=== PATIENT | female | born 1955 | race Caucasian/White ===

== ENCOUNTER → 2020-03-18 08:26 | Outpatient (BNVA) | payer OTHER, SELFPAY | PROVIDERS: PCP Internal Medicine; Visit Provider Hospitalist | DX: Z76.89 Persons encountering health services in other specified circumstances (principal) ==

== ENCOUNTER 2021-01-08 09:40 | Outpatient (REF) | payer OTHER, SELFPAY ==
--- NOTE | 2021-01-08 17:01 | PFT_ITS ---
FLOWS: FEV1 92% of predicted at 2.08 L. FVC 80% of predicted at 2.35 L. FEV1 to FVC ratio of 0.88. No bronchodilator response except in small to medium airways. LUNG VOLUMES: Total lung capacity 95% of predicted at 4.39 L. Residual volume 95% predicted at 1.89 L. Slow vital capacity 90% of predicted at 0.50 L. Expiratory reserve volume 114% predicted at 0.81 L. Diffusion capacity is normal. IMPRESSION: No obstructive or restrictive ventilatory defect. No bronchodilator response except in small to medium airways. Essentially normal pulmonary function test. MD BJ Sneed/MODL / [id number]
== END 2021-01-08 09:41 | disposition home or self-care (01) ==
LOC: HO.RESP 09:40
PROVIDERS: PCP Internal Medicine; Visit Provider Hospitalist
DX: J45.909 Unspecified asthma, uncomplicated (principal)
CPT/HCPCS: 94060; 94727; 94729

== ENCOUNTER → 2021-01-21 10:13 | Outpatient (BNVA) | payer OTHER, SELFPAY | PROVIDERS: PCP Internal Medicine; Visit Provider Hospitalist ==

== ENCOUNTER 2021-07-22 11:04 | Outpatient (REF) | payer MEDICARE, BC, SELFPAY ==
--- NOTE | ~2021-07-22 | XR_ITS ---
EXAMINATION: XR CHEST CLINICAL INFORMATION: Chest pain COMPARISON: Previous chest x-ray January 2019 TECHNIQUE: 2 views of the chest were obtained. FINDINGS: The cardiac and mediastinal contours are stable. The lungs are well inflated. The lungs are clear. There is no pleural effusion or pneumothorax. There are degenerative changes of the spine. XR/XR chest 2V IMPRESSION: Well-inflated lungs. No evidence for acute disease in the chest.
--- NOTE | ~2021-07-22 | XR_ITS ---
EXAMINATION: XR SINUSES CLINICAL INFORMATION: Chronic sinusitis COMPARISON: None TECHNIQUE: 3 views of the sinuses were obtained. FINDINGS: Paranasal sinuses appear clear without air-fluid levels. No fractures are identified. No radiodense foreign bodies. XR/XR sinus min 3V IMPRESSION: Unremarkable sinus examination.
== END 2021-07-22 11:05 | disposition home or self-care (01) ==
LOC: HO.XRAY 11:04
PROVIDERS: PCP Internal Medicine; Visit Provider Hospitalist
DX: R07.9 Chest pain, unspecified (principal); J32.9 Chronic sinusitis, unspecified; J45.40 Moderate persistent asthma, uncomplicated; G47.33 Obstructive sleep apnea (adult) (pediatric); Z99.89 Dependence on other enabling machines and devices
CPT/HCPCS: 70220; 71046; 99212

== ENCOUNTER 2022-03-15 17:03 | Outpatient (REF) | payer MEDICARE, BC, SELFPAY ==
[2022-03-15 18:02] LABS: Influenza A PCR NEGATIVE (Negative); Influenza B PCR NEGATIVE (Negative); Resp Syncy Virus RNA Qual PCR NEGATIVE (Negative); SARS COV2 PCR INHOUSE NEGATIVE (Negative)
== END 2022-03-15 17:04 | disposition home or self-care (01) ==
LOC: HO.LNP 17:03
PROVIDERS: Visit Provider Hospitalist
DX: J45.40 Moderate persistent asthma, uncomplicated (principal); J06.9 Acute upper respiratory infection, unspecified; J01.00 Acute maxillary sinusitis, unspecified; J30.9 Allergic rhinitis, unspecified; R50.9 Fever, unspecified; G47.33 Obstructive sleep apnea (adult) (pediatric); Z99.89 Dependence on other enabling machines and devices; Z20.822 Contact with and (suspected) exposure to COVID-19
CPT/HCPCS: 0241U; 99212

== ENCOUNTER 2023-04-28 14:47 | Outpatient (AMB) | payer MEDICARE, BC, SELFPAY ==
--- NOTE | 2023-04-28 14:55 | A.OFFVIS_ITS ---
Intake Vital Signs 04/28/23 14:56 Height 5 ft 3 in Weight 150 lb BMI 26.6 BP 128/60 Blood Pressure Location Lt brachial Position Sitting Pulse 69 Pulse Source Pulse Oximeter Pulse Oximetry (%) 99 Oxygen Delivery Method Room Air Intake Visit Reasons: asthma Carbon Paper Interleafer Required: No Allergies Sulfa Drugs Allergy (Severe, Uncoded 04/28/23 14:58) Hives HPI HPI Comments History of Present Illness Details The patient is a 67-year-old woman with asthma and obstructive sleep apnea. More recently she felt dizzy and subsequently had a syncopal episode. She was admitted to [facility] back in November 06 where she had an EKG which was relatively normal. It is felt that she was dehydrated and a vasovagal event as she was constipated. However, she also had an echocardiogram and Holter monitor. The echocardiogram demonstrated that she had an estimated pulmonary arterial pressure of 38 mmHg suggesting that she potentially has moderate pulmonary hypertension. Her RV is normal size and function which is reassuring in her are in the LV is also within normal. No valvular disease. She does have issues of daytime drowsiness. Her [place] Score is elevated 04/03. She needs to get a sleep study at this time because of the concern of the cardiovascular risks the pulmonary vascular risks and also her continued daytime symptoms. I will request a sleep study [facility]. In regards to her asthma is appears to be better now that she is taking her full dose or 2 ago. She has not had to use a rescue inhaler. Denies any use of prednisone a recent flares. Using antihistamines for allergies appears to be effective. She did undergo a home sleep study which demonstrated mild sleep apnea. She also had hypoxia down to 84% which is concerning with her pulmonary hypertension. The patient also cannot lay on her sides because of significant issues sleeping on her sides. Unfortunately, her sleep apnea was worse on her back which she sleeps more comfortably. At this point the patient needs to start CPAP therapy to treat her cardiovascular risks including her pulmonary hypertension and her degree of obstructive sleep apnea. 04/26/2019 the patient is here for sick visit. Apparently back in April 11 she was exposed to sick contact. She started having runny nose and congestion. Also had increased cough productive sputum. She had azithromycin in the house so she took a 3 day course of it. Initially she felt a little better than started getting worse. Started getting some chest congestion productive cough of green sputum. Also complains of some chest heaviness. She has been having more issues with her cough also has subjective fevers. Therefore she called in to be evaluated. The office she does have some crepitations at the bases right more than left. He also has expiratory wheezing. She needs to get a breathing treatment right now. She may benefit from a nebulizer for home specially for mucus clearance. 03/17/2020 Personal her for pulmonary follow-up visit. The pressure overall has been doing well. She continues to use her AirDuo. She has not had to use her rescue inhaler. She does have underlying allergies and nasal congestion. She does through the nasal rinsing her nose was sprayed. Does have some shortness of breath with activity mild in severity. Usually gets better with rest. Also has a cough. Usually nonproductive her normal trip. But overall doing well. She was seen by her maintenance team leader who is very happy with her underlying cardiac status. No need for an echo for the next 3 years. In the meantime the patient has been using her CPAP. CPAP therapy continues to be affecting beneficial. She does use it for more than 4 hours a night. She is getting supplies through her [employer] company, [employer]. We did look at her last chest x-ray from 2019 demonstrating interval resolution of a small infiltrate and atelectasis. Will plan to do PFTs and repeat x-ray next year. 01/21/2021 the patient is here for a pulmonary follow-up visit. She continues to have episodes of shortness of breath chest tightness. There is certain triggers that she has specially and she is vacuuming or different changes season such as a fall in the spring. She also gets nasal congestion along with the chest tightness. Flonase and nasal rinsing is not helping completely. I will send her prescription for ipratropium nasal spray. She does state that in the past she was diagnosed with glaucoma but the last time that she had a test was not mention. Explained to her that she could try the petroleum which she needs to have your eyes closely monitor. If she develops any visual changes he is to stop the ipratropium nasal spray. The patient has been using the CPAP. The CPAP therapy continues to be affecting beneficial. She does use it for more than 4 hours a night. She does have a history of pulmonary hypertension and understands the importance of using her CPAP therapy. During the office visit we did review her recent pulmonary function studies demonstrating normal lung capacity. no evidence of any obstructive nor restrictive ventilatory defects. 07/22/2021 the patient is here for a pulmonary follow-up visit. Since we last spoke the patient has been feeling fatigued and not herself. She has had a few bouts of sinusitis. The last about was stronger. She did require antibiotics and prednisone in addition to [id number] therapy. She is feeling better. However, because of the sinus congestion sometime she cannot use her CPAP. She did bring her CPAP in and was able to downloaded. Her AHI was actually 0.1. Her average pressure is around 8. She is doing very well with it using approximately more than 6-7 hours a night. She does have a comfortable mask. The machine seems to be working very well even though is more than 5 years old. She will continue using for now. Patient also complains of some mild chest discomfort. It is in the reproducible. However, she has not had a chest x-ray sometime in with constitutional symptoms of be reasonable to get further studies. 03/15/2022 the patient is here for a pulmonary follow-up visit. She has been having issues with significant sinus pressure and pain. She is also complaining of a cough. This happened to start yesterday. Positive sick contacts. She did have a libertarian that she hopes that over the weekend. Denies any wheezing or chest tightness right now. She did have a slight temperature a 100.5 degrees. Therefore I did swab her in the office. She did test negative for RSV, flu and for COVID-19. No significant wheezing on examination at this time. No recent x-rays or imaging studies to review. Overall the patient has been doing well on the current respiratory regimen. 04/28/2023 the patient is here for pulmonary follow-up visit. Overall the patient has been doing well. Back in March she did call her primary care doctor for sinus symptoms. She was diagnosed sinusitis and given antibiotics. After that she is back to her baseline. She was given doxycycline. The patient has been using her inhalers with good effect. She has not required her rescue inhaler. In addition to that she continues use her CPAP. The CPAP therapy c ontinues to be affecting beneficial. She does use a nasal mask. Sometimes if her nasal passages to plugged up she has a hard time with the machine therefore she can not use it. But she does try to use it at least 70% of the time or more. Otherwise patient is without any other complaints we did look at her last chest x-ray does back from 2021 that just demonstrated hyperinflated lungs. As far as vaccine she does not typically get vaccines but I did explain to her the importance of getting the Prevnar 20 vaccine as she is taking care of her grandchildren. [facility] Medical History (Updated 03/15/22 @ 21:23 by Donavan Nation MD) Chest pain PARISH on CPAP Chronic allergic rhinitis Asthma Social History (Updated 01/21/21 @ 10:35 by Agnieszka Watkins Kurt) Patient Tobacco Use Status: Never used Tobacco Review of Systems Const Denies chills and Denies night sweats ENT Denies change in voice, Denies lip swelling, Denies mouth pain, Reports nasal congestion, Reports post nasal drip, Denies sinus pain, Denies sinus pressure and Denies tongue swelling Card Denies dyspnea Resp Reports cough and Denies dyspnea GI Denies abdominal pain Musc Denies no additional complaints Neuro Denies Neuro-related abnormal movements Psych Denies no additional complaints Jairon/Lymph Denies easy bleeding and Denies lymphadenopathy Aller/Immun Denies lip swelling and Denies tongue swelling Physical Exam Vital Signs: Last Vital Signs Pulse 69 04/28/23 14:56 BP 128/60 04/28/23 14:56 Pulse Ox 99 04/28/23 14:56 Oxygen Delivery Method Room Air 04/28/23 14:56 BMI result Body Mass Index 26.6 Const General: alert Neck Neck: Yes normal visual inspection, Yes full ROM and Yes no lymphadenopathy Chest Chest palpation & inspection: normal inspection of the chest and tenderness costochondral junction Resp Effort & Inspection: normal respiratory effort Auscultation: diminished lung sounds Cardio Rate: regular rate Rhythm: regular rhythm Heart sounds: S1 normal heart sound present and S2 normal heart sound present GI Palpation (GI): Soft to palpation and nontender Auscultation: normal bowel sounds Skin General skin exam: rashes and/or lesions noted Assessment & Plan Assessment & Plan (1) Asthma: Code(s): J45.909 - Unspecified asthma, uncomplicated Qualifiers: Asthma complication type: uncomplicated Asthma persistence: persistent Asthma severity: moderate Qualified Code(s): J45.40 - Moderate persistent asthma, uncomplicated Plan: Continue AirDuo twice a day Short-acting beta agonist as needed, nebulizer as needed (2) Chronic allergic rhinitis: Code(s): J30.9 - Allergic rhinitis, unspecified Plan: Nasal rinsing Nasal steroid Mucinex as needed Facy-xlb-coklrah allergy medicine as needed (3) PARISH on CPAP: Code(s): G47.33 - Obstructive sleep apnea (adult) (pediatric); Z99.89 - Dependence on other enabling machines and devices Plan: Continue CPAP therapy every night Plan Nasal rinsing continue APAP therapy, [employer] continue AirDuo short-acting beta agonist as needed Follow-up 8-12 months Coding Level of Care Code Est Pt Level 4 (28871) Diagnoses Moderate persistent asthma without complication J45.40 Asthma complication type: uncomplicated Asthma persistence: persistent Asthma severity: moderate Chronic allergic rhinitis J30.9 PARISH on CPAP G47.33; Z99.89 Time Spent (min) 16
[2023-04-28 14:56] VITALS: BP 128/60; PULSE 69; O2SAT 99; BMI 26.6
== END 2023-04-28 15:14 | disposition home or self-care (01) ==
PROVIDERS: PCP Internal Medicine; Visit Provider Hospitalist
DX: J45.40 Moderate persistent asthma, uncomplicated (principal); J30.9 Allergic rhinitis, unspecified; G47.33 Obstructive sleep apnea (adult) (pediatric); Z99.89 Dependence on other enabling machines and devices
CPT/HCPCS: 99214

== ENCOUNTER → 2023-04-28 14:47 | Outpatient (BNVA) | payer MEDICARE, BC, SELFPAY | PROVIDERS: PCP Internal Medicine; Visit Provider Hospitalist | DX: J45.40 Moderate persistent asthma, uncomplicated (principal); G47.33 Obstructive sleep apnea (adult) (pediatric); J30.9 Allergic rhinitis, unspecified; Z99.89 Dependence on other enabling machines and devices | CPT/HCPCS: 99212 ==

== ENCOUNTER 2024-03-23 15:02 | Outpatient (AMB) | payer MEDICARE, BC, SELFPAY ==
[2024-03-23 15:21] VITALS: BP 140/84; PULSE 69; O2SAT 99; BMI 27.5
--- NOTE | 2024-03-23 15:21 | A.OFFVIS_ITS ---
Vital Signs 03/23/24 15:21 Height 5 ft 3 in Weight 155 lb 6.814 oz BMI 27.5 BP 140/84 H Blood Pressure Location Lt brachial Position Sitting Pulse 69 Pulse Source Pulse Oximeter Pulse Oximetry (%) 99 Oxygen Delivery Method Room Air Intake Visit Reasons: Yearly check Ocular Care Technologist Required: No Allergies Sulfa Drugs Allergy (Severe, Uncoded 03/23/24 15:25) Hives HPI Comments Details: The patient is a 68-year-old woman with asthma and obstructive sleep apnea. More recently she felt dizzy and subsequently had a syncopal episode. She was admitted to [facility] back in November 06 where she had an EKG which was relatively normal. It is felt that she was dehydrated and a vasovagal event as she was constipated. However, she also had an echocardiogram and Holter monitor. The echocardiogram demonstrated that she had an estimated pulmonary arterial pressure of 38 mmHg suggesting that she potentially has moderate pulmonary hypertension. Her RV is normal size and function which is reassuring in her are in the LV is also within normal. No valvular disease. She does have issues of daytime drowsiness. Her [place] Score is elevated 04/03. She needs to get a sleep study at this time because of the concern of the cardiovascular risks the pulmonary vascular risks and also her continued daytime symptoms. I will request a sleep study KYLEE. In regards to her asthma is appears to be better now that she is taking her full dose or 2 ago. She has not had to use a rescue inhaler. Denies any use of prednisone a recent flares. Using antihistamines for allergies appears to be effective. She did undergo a home sleep study which demonstrated mild sleep apnea. She also had hypoxia down to 84% which is concerning with her pulmonary hypertension. The patient also cannot lay on her sides because of significant issues sleeping on her sides. Unfortunately, her sleep apnea was worse on her back which she sleeps more comfortably. At this point the patient needs to start CPAP therapy to treat her cardiovascular risks including her pulmonary hypertension and her degree of obstructive sleep apnea. 04/26/2019 the patient is here for sick visit. Apparently back in April 11 she was exposed to sick contact. She started having runny nose and congestion. Also had increased cough productive sputum. She had azithromycin in the house so she took a 3 day course of it. Initially she felt a little better than started getting worse. Started getting some chest congestion productive cough of green sputum. Also complains of some chest heaviness. She has been having more issues with her cough also has subjective fevers. Therefore she called in to be evaluated. The office she does have some crepitations at the bases right more than left. He also has expiratory wheezing. She needs to get a breathing treatment right now. She may benefit from a nebulizer for home specially for mucus clearance. 03/17/2020 Personal her for pulmonary follow-up visit. The pressure overall has been doing well. She continues to use her AirDuo. She has not had to use her rescue inhaler. She does have underlying allergies and nasal congestion. She does through the nasal rinsing her nose was sprayed. Does have some shortness of breath with activity mild in severity. Usually gets better with rest. Also has a cough. Usually nonproductive her normal trip. But overall doing well. She was seen by her occupational physician who is very happy with her underlying cardiac status. No need for an echo for the next 3 years. In the meantime the patient has been using her CPAP. CPAP therapy continues to be affecting beneficial. She does use it for more than 4 hours a night. She is getting supplies through her [employer] company, [employer]. We did look at her last chest x-ray from 2019 demonstrating interval resolution of a small infiltrate and atelectasis. Will plan to do PFTs and repeat x-ray next year. 01/21/2021 the patient is here for a pulmonary follow-up visit. She continues to have episodes of shortness of breath chest tightness. There is certain triggers that she has specially and she is vacuuming or different changes season such as a fall in the spring. She also gets nasal congestion along with the chest tightness. Flonase and nasal rinsing is not helping completely. I will send her prescription for ipratropium nasal spray. She does state that in the past she was diagnosed with glaucoma but the last time that she had a test was not mention. Explained to her that she could try the petroleum which she needs to have your eyes closely monitor. If she develops any visual changes he is to stop the ipratropium nasal spray. The patient has been using the CPAP. The CPAP therapy continues to be affecting beneficial. She does use it for more than 4 hours a night. She does have a history of pulmonary hypertension and understands the importance of using her CPAP therapy. During the office visit we did review her recent pulmonary function studies demonstrating normal lung capacity. no evidence of any obstructive nor restrictive ventilatory defects. 07/22/2021 the patient is here for a pulmonary follow-up visit. Since we last spoke the patient has been feeling fatigued and not herself. She has had a few bouts of sinusitis. The last about was stronger. She did require antibiotics and prednisone in addition to [id number] therapy. She is feeling better. However, because of the sinus congestion sometime she cannot use her CPAP. She did bring her CPAP in and was able to downloaded. Her AHI was actually 0.1. Her average pressure is around 8. She is doing very well with it using approximately more than 6-7 hours a night. She does have a comfortable mask. The machine seems to be working very well even though is more than 5 years old. She will continue using for now. Patient also complains of some mild chest discomfort. It is in the reproducible. However, she has not had a chest x-ray sometime in with constitutional symptoms of be reasonable to get further studies. 03/15/2022 the patient is here for a pulmonary follow-up visit. She has been having issues with significant sinus pressure and pain. She is also complaining of a cough. This happened to start yesterday. Positive sick contacts. She did have a constitution party that she hopes that over the weekend. Denies any wheezing or chest tightness right now. She did have a slight temperature a 100.5 degrees. Therefore I did swab her in the office. She did test negative for RSV, flu and for COVID-19. No significant wheezing on examination at this time. No recent x-rays or imaging studies to review. Overall the patient has been doing well on the current respiratory regimen. 04/28/2023 the patient is here for pulmonary follow-up visit. Overall the patient has been doing well. Back in March she did call her primary care doctor for sinus symptoms. She was diagnosed sinusitis and given antibiotics. After that she is back to her baseline. She was given doxycycline. The patient has been using her inhalers with good effect. She has not required her rescue inhaler. In addition to that she continues use her CPAP. The CPAP therapy continues to be affecting beneficial. She does use a nasal mask. Sometimes if her nasal passages to plugged up she has a hard time with the machine therefore she can not use it. But she does try to use it at least 70% of the time or more. Otherwise patient is without any other complaints we did look at her last chest x-ray does back from 2021 that just demonstrated hyperinflated lungs. As far as vaccine she does not typically get vaccines but I did explain to her the importance of getting the Prevnar 20 vaccine as she is taking care of her grandchildren. 03/23/2024 the patient is here for a pulmonary follow-up visit. Overall the patient has been doing well. Been about a year since we last spoke. The patient has been using her inhalers with good effect. She has not required any prednisone. She has not required her rescue inhaler. Sometimes she does have allergies and nasal congestion. Sometimes this makes it hard to use her CPAP with a nasal mask. She wonders if a fullface mask will be more comfortable for her. She also gets a dry mouth at times. I did recommend she can try a chin strap 1st and if that does not work she can always call me and I can request Kaela to send her fullface mask. No recent imaging studies to review. ON LICENSE OF [facility] Medical History (Updated 03/15/22 @ 21:23 by Donavan Nation MD) Chest pain PARISH on CPAP Chronic allergic rhinitis Asthma Social History Patient Tobacco Use Status: Never used Tobacco Review of Systems Const Denies chills and Denies night sweats ENT Denies change in voice, Denies lip swelling, Denies mouth pain, Reports nasal congestion, Reports post nasal drip, Denies sinus pain, Denies sinus pressure and Denies tongue swelling Card Denies dyspnea Resp Reports cough and Denies dyspnea GI Denies abdominal pain Musc Denies no additional complaints Neuro Denies Neuro-related abnormal movements Psych Denies no additional complaints Jairon/Lymph Denies easy bleeding and Denies lymphadenopathy Aller/Immun Denies lip swelling and Denies tongue swelling Physical Exam Vital Signs: Last Vital Signs Pulse 69 03/23/24 15:21 BP 140/84 H 03/23/24 15:21 Pulse Ox 99 03/23/24 15:21 Oxygen Delivery Method Room Air 03/23/24 15:21 BMI result Body Mass Index 27.5 Const General: alert Neck Neck: Yes normal visual inspection, Yes full ROM and Yes no lymphadenopathy Chest Chest palpation & inspection: normal inspection of the chest and tenderness costochondral junction Resp Effort & Inspection: normal respiratory effort Auscultation: diminished lung sounds Cardio Rate: regular rate Rhythm: regular rhythm Heart sounds: S1 normal heart sound present and S2 normal heart sound present GI Palpation (GI): Soft to palpation and nontender Auscultation: normal bowel sounds Skin General skin exam: rashes and/or lesions noted Assessment & Plan Assessment & Plan (1) Asthma: Code(s): J45.909 - Unspecified asthma, uncomplicated Category: Medical Qualifiers: Asthma complication type: uncomplicated Asthma persistence: persistent Asthma severity: moderate Qualified Code(s): J45.40 - Moderate persistent asthma, uncomplicated Plan: Continue AirDuo twice a day Short-acting beta agonist as needed, nebulizer as needed (2) Chronic allergic rhinitis: Code(s): J30.9 - Allergic rhinitis, unspecified Category: Medical Plan: Nasal rinsing Nasal steroid Mucinex as needed Cfxl-goq-hvluwrz allergy medicine as needed (3) PARISH on CPAP: Code(s): G47.33 - Obstructive sleep apnea (adult) (pediatric); Z99.89 - Dependence on other enabling machines and devices Category: Medical Plan: Continue CPAP therapy every night Plan Nasal rinsing continue APAP therapy, [employer] continue AirDuo short-acting beta agonist as needed Follow-up 8-12 months Coding Level of Care Code Est Pt Level 4 (15242) Diagnoses Moderate persistent asthma without complication J45.40 Asthma complication type: uncomplicated Asthma persistence: persistent Asthma severity: moderate Chronic allergic rhinitis J30.9 PARISH on CPAP G47.33; Z99.89 Time Spent (min) 17
== END 2024-03-23 15:48 | disposition home or self-care (01) ==
PROVIDERS: PCP Internal Medicine; Visit Provider Hospitalist
DX: J45.40 Moderate persistent asthma, uncomplicated (principal); J30.9 Allergic rhinitis, unspecified; G47.33 Obstructive sleep apnea (adult) (pediatric); Z99.89 Dependence on other enabling machines and devices
CPT/HCPCS: 99214

== ENCOUNTER → 2024-03-23 15:02 | Outpatient (BNVA) | payer MEDICARE, BC, SELFPAY | PROVIDERS: PCP Internal Medicine; Visit Provider Hospitalist | DX: J45.40 Moderate persistent asthma, uncomplicated (principal); J30.9 Allergic rhinitis, unspecified; G47.33 Obstructive sleep apnea (adult) (pediatric); Z99.89 Dependence on other enabling machines and devices | CPT/HCPCS: 99212 ==

== ENCOUNTER 2025-04-02 09:53 | Outpatient (AMB) | payer MEDICARE, BC, SELFPAY ==
--- NOTE | 2025-04-02 09:56 | MHC.OFFVIS ---
Vital Signs 04/02/25 09:57 Height 5 ft 3 in Weight 148 lb 12.992 oz BMI 26.4 BP 154/80 H Blood Pressure Location Lt brachial Position Sitting Pulse 63 Pulse Source Pulse Oximeter Pulse Oximetry (%) 99 Oxygen Delivery Method Room Air Intake Visit Reasons: yearly f/u Illusionist Required: No International Sales Representative: International Sales Representative offered & declined Accompanied by: Self / Same As Patient Allergies Sulfa Drugs Allergy (Severe, Uncoded 03/23/24 15:25) Hives HPI Comments Details: The patient is a 69-year-old woman with asthma and obstructive sleep apnea. More recently she felt dizzy and subsequently had a syncopal episode. She was admitted to [facility] back in November 06 where she had an EKG which was relatively normal. It is felt that she was dehydrated and a vasovagal event as she was constipated. However, she also had an echocardiogram and Holter monitor. The echocardiogram demonstrated that she had an estimated pulmonary arterial pressure of 38 mmHg suggesting that she potentially has moderate pulmonary hypertension. Her RV is normal size and function which is reassuring in her are in the LV is also within normal. No valvular disease. She does have issues of daytime drowsiness. Her Duncan Score is elevated 04/03. She needs to get a sleep study at this time because of the concern of the cardiovascular risks the pulmonary vascular risks and also her continued daytime symptoms. I will request a sleep study [facility]. In regards to her asthma is appears to be better now that she is taking her full dose or 2 ago. She has not had to use a rescue inhaler. Denies any use of prednisone a recent flares. Using antihistamines for allergies appears to be effective. She did undergo a home sleep study which demonstrated mild sleep apnea. She also had hypoxia down to 84% which is concerning with her pulmonary hypertension. The patient also cannot lay on her sides because of significant issues sleeping on her sides. Unfortunately, her sleep apnea was worse on her back which she sleeps more comfortably. At this point the patient needs to start CPAP therapy to treat her cardiovascular risks including her pulmonary hypertension and her degree of obstructive sleep apnea. 04/26/2019 the patient is here for sick visit. Apparently back in April 11 she was exposed to sick contact. She started having runny nose and congestion. Also had increased cough productive sputum. She had azithromycin in the house so she took a 3 day course of it. Initially she felt a little better than started getting worse. Started getting some chest congestion productive cough of green sputum. Also complains of some chest heaviness. She has been having more issues with her cough also has subjective fevers. Therefore she called in to be evaluated. The office she does have some crepitations at the bases right more than left. He also has expiratory wheezing. She needs to get a breathing treatment right now. She may benefit from a nebulizer for home specially for mucus clearance. 03/17/2020 Personal her for pulmonary follow-up visit. The pressure overall has been doing well. She continues to use her AirDuo. She has not had to use her rescue inhaler. She does have underlying allergies and nasal congestion. She does through the nasal rinsing her nose was sprayed. Does have some shortness of breath with activity mild in severity. Usually gets better with rest. Also has a cough. Usually nonproductive her normal trip. But overall doing well. She was seen by her spindle plumber who is very happy with her underlying cardiac status. No need for an echo for the next 3 years. In the meantime the patient has been using her CPAP. CPAP therapy continues to be affecting beneficial. She does use it for more than 4 hours a night. She is getting supplies through her [employer] company, [employer]. We did look at her last chest x-ray from 2019 demonstrating interval resolution of a small infiltrate and atelectasis. Will plan to do PFTs and repeat x-ray next year. 01/21/2021 the patient is here for a pulmonary follow-up visit. She continues to have episodes of shortness of breath chest tightness. There is certain triggers that she has specially and she is vacuuming or different changes season such as a fall in the spring. She also gets nasal congestion along with the chest tightness. Flonase and nasal rinsing is not helping completely. I will send her prescription for ipratropium nasal spray. She does state that in the past she was diagnosed with glaucoma but the last time that she had a test was not mention. Explained to her that she could try the petroleum which she needs to have your eyes closely monitor. If she develops any visual changes he is to stop the ipratropium nasal spray. The patient has been using the CPAP. The CPAP therapy continues to be affecting beneficial. She does use it for more than 4 hours a night. She does have a history of pulmonary hypertension and understands the importance of using her CPAP therapy. During the office visit we did review her recent pulmonary function studies demonstrating normal lung capacity. no evidence of any obstructive nor restrictive ventilatory defects. 07/22/2021 the patient is here for a pulmonary follow-up visit. Since we last spoke the patient has been feeling fatigued and not herself. She has had a few bouts of sinusitis. The last about was stronger. She did require antibiotics and prednisone in addition to [id number] therapy. She is feeling better. However, because of the sinus congestion sometime she cannot use her CPAP. She did bring her CPAP in and was able to downloaded. Her AHI was actually 0.1. Her average pressure is around 8. She is doing very well with it using approximately more than 6-7 hours a night. She does have a comfortable mask. The machine seems to be working very well even though is more than 5 years old. She will continue using for now. Patient also complains of some mild chest discomfort. It is in the reproducible. However, she has not had a chest x-ray sometime in with constitutional symptoms of be reasonable to get further studies. 03/15/2022 the patient is here for a pulmonary follow-up visit. She has been having issues with significant sinus pressure and pain. She is also complaining of a cough. This happened to start yesterday. Positive sick contacts. She did have a libertarian that she hopes that over the weekend. Denies any wheezing or chest tightness right now. She did have a slight temperature a 100.5 degrees. Therefore I did swab her in the office. She did test negative for RSV, flu and for COVID-19. No significant wheezing on examination at this time. No recent x-rays or imaging studies to review. Overall the patient has been doing well on the current respiratory regimen. 04/28/2023 the patient is here for pulmonary follow-up visit. Overall the patient has been doing well. Back in March she did call her primary care doctor for sinus symptoms. She was diagnosed sinusitis and given antibiotics. After that she is back to her baseline. She was given doxycycline. The patient has been using her inhalers with good effect. She has not required her rescue inhaler. In addition to that she continues use her CPAP. The CPAP therapy continues to be affecting beneficial. She does use a nasal mask. Sometimes if her nasal passages to plugged up she has a hard time with the machine therefore she can not use it. But she does try to use it at least 70% of the time or more. Otherwise patient is without any other complaints we did look at her last chest x-ray does back from 2021 that just demonstrated hyperinflated lungs. As far as vaccine she does not typically get vaccines but I did explain to her the importance of getting the Prevnar 20 vaccine as she is taking care of her grandchildren. 03/23/2024 the patient is here for a pulmonary follow-up visit. Overall the patient has been doing well. Been about a year since we last spoke. The patient has been using her inhalers with good effect. She has not required any prednisone. She has not required her rescue inhaler. Sometimes she does have allergies and nasal congestion. Sometimes this makes it hard to use her CPAP with a nasal mask. She wonders if a fullface mask will be more comfortable for her. She also gets a dry mouth at times. I did recommend she can try a chinstrap 1st and if that does not work she can always call me and I can request Kaela to send her fullface mask. No recent imaging studies to review. 04/02/2025 the patient is here for pulmonary follow-up visit. The patient overall has been doing okay from respiratory status. She is no longer using her maintenance inhaler. She also has been using her CPAP. CPAP therapy has been affecting beneficial. She did bring it in. AHI is down to 0.1. She still has significant air leakage likely through the mouth since she does use a nasal mask. She does have a chinstrap she is going to try to use. But is working effectively for her. She is not having too much of a dry mouth. Her major issue right now is that she is developing some chest discomfort primarily in the left side of the chest and some slight radiation down the arm. She thought about call her primary care doctor but she needs she has a appointment coming up. Her last chest x-ray was back in 2021. Nothing recent. No recent EKGs. Will have her get an EKG and chest x-ray at this time. If her symptoms persist she needs to call her primary care or go to the hospital. Otherwise if her EKGs abnormal we can also consider a stress test. Will follow-up with the patient with a phone call after her results. Otherwise if everything goes well will follow-up in a year's time. [facility] Medical History (Updated 03/15/22 @ 21:23 by Donavan Nation MD) Chest pain PARISH on CPAP Chronic allergic rhinitis Asthma Social History Patient Tobacco Use Status: Never used Tobacco Review of Systems Const Denies chills and Denies night sweats ENT Denies change in voice, Denies lip swelling, Denies mouth pain, Reports nasal congestion, Reports post nasal drip, Denies sinus pain, Denies sinus pressure and Denies tongue swelling Card Reports chest pain, Reports radiating jaw, neck or arm pain and Denies dyspnea Resp Reports cough and Denies dyspnea GI Denies abdominal pain Musc Denies no additional complaints Neuro Denies Neuro-related abnormal movements Psych Denies no additional complaints Jairon/Lymph Denies easy bleeding and Denies lymphadenopathy Aller/Immun Denies lip swelling and Denies tongue swelling Physical Exam Vital Signs: Last Vital Signs Pulse 63 04/02/25 09:57 BP 154/80 H 04/02/25 09:57 Pulse Ox 99 04/02/25 09:57 Oxygen Delivery Method Room Air 04/02/25 09:57 BMI result Body Mass Index 26.4 Const General: alert Neck Neck: Yes normal visual inspection, Yes full ROM and Yes no lymphadenopathy Chest Chest palpation & inspection: normal inspection of the chest and no tenderness Resp Effort & Inspection: normal respiratory effort Auscultation: diminished lung sounds Cardio Rate: regular rate Rhythm: regular rhythm Heart sounds: S1 normal heart sound present and S2 normal heart sound present GI Palpation (GI): Soft to palpation and nontender Auscultation: normal bowel sounds Skin General skin exam: rashes and/or lesions noted Assessment & Plan Assessment & Plan (1) Asthma: Code(s): J45.909 - Unspecified asthma, uncomplicated Category: Medical Qualifiers: Asthma complication type: uncomplicated Asthma persistence: persistent Asthma severity: moderate Qualified Code(s): J45.40 - Moderate persistent asthma, uncomplicated Plan: Continue AirDuo twice a day Short-acting beta agonist as needed, nebulizer as needed (2) Chronic allergic rhinitis: Code(s): J30.9 - Allergic rhinitis, unspecified Category: Medical Plan: Nasal rinsing Nasal steroid Mucinex as needed Iihv-hbu-drxrpof allergy medicine as needed (3) PARISH on CPAP: Code(s): G47.33 - Obstructive sleep apnea (adult) (pediatric); Z99.89 - Dependence on other enabling machines and devices Category: Medical Plan: Continue CPAP therapy every night (4) Chest pain: Code(s): R07.9 - Chest pain, unspecified Category: Medical Qualifiers: Chest pain type: precordial pain Qualified Code(s): R07.2 - Precordial pain Plan Nasal rinsing continue APAP therapy, [employer] will try chin strap continue AirDuo short-acting beta agonist as needed CXR EKG consider cardiac stress test Follow-up 8-12 months Orders: Orders XR chest 2V Today R07.2 - Precordial pain ECG 12 lead EKG Today J44.9 - Chronic obstructive pulmonary disease, unspecified, R07.2 - Precordial pain Medications: Refilled albuterol sulfate 90 mcg/actuation (ProAir HFA) 2 puffs inhalation Q6H PRN 18 grams 11RF shortness of breath or wheezing 30 days J45.909 - Unspecified asthma, uncomplicated Coding Level of Care Code Est Pt Level 4 (56244) Diagnoses Moderate persistent asthma without complication J45.40 Asthma complication type: uncomplicated Asthma persistence: persistent Asthma severity: moderate Chronic allergic rhinitis J30.9 PARISH on CPAP G47.33; Z99.89 Precordial pain R07.2 Chest pain type: precordial pain Time Spent (min) 16
[2025-04-02 09:57] VITALS: BP 154/80; PULSE 63; O2SAT 99; BMI 26.4
--- OUTSIDE RECORDS SUMMARY | 2025-04-02 10:43 | XMS_ITS | Patient Health Record ---
Author Organization [facility] Address [address] [place] [address] Care Team Providers Care Hook Puller Name Role Phone DOMINGA PEREZ Primary Care Provider ARTUROKEELEYA Unavailable [phone] Allergies Allergen (clinical drug ingredient) Drug/Non Drug Allergy documented on EMR Reaction Allergy Type Onset Date Status Substance with sulfonamide structure and antibacterial mechanism of action (substance) Sulfa Antibiotics rash Drug Allergy Active Reason For Referral No Information Medications Medication SIG (Take, Route, Frequency, Duration) Notes Start Date End Date Status Advil 200 MG Tablet 3 tab(s) orally Q8H prn 2021 Active Calcium 600+D 600-800 MG-UNIT Tablet 1 tab(s) orally 2 times a day Active ProAir HFA 108 (90 Base) MCG/ACT Aerosol Solution 2 puff(s) inhaled 4 times a day prn Active Fluticasone-Salmeterol 113-14 MCG/ACT Aerosol Powder Breath Activated 1 puff Inhalation Twice a day pulm Active Alendronate Sodium 70 MG Tablet 1 tablet 30 minutes before the first food, beverage or medicine of the day with plain water Orally once a week Active FOCUS FACTOR 2 TAB ORAL QD Act devon Culturelle - Capsule 1 capsule Orally on ce a day prn Active Fluocinolone Acetonide 0.025 % Ointment 1 rama applied topically 2 times a day prn Active Fluticasone Propionate 50 MCG/ACT Suspension 1 spray in each nostril Nasally Once a day, as needed Active Neti Pot Sinus Wash 2300-700 MG Kit as directed Nasally as needed Active Magnesium 400 MG Tablet 1 tablet Orally once a day Active Bioflex - Tablet 1 tablet Orally twic e a day Active Lisinopril 5 MG Tablet TAKE 1 TABLET BY MOUTH EVERY DAY; Duration: 90 Active Immunizations Vaccine Route Administration Date Status Comme nts Pfizer COVID-19,mRNA, LNP-S, PF, 30mcg/0.3mL dose IM Intramuscular 06/06/2020 Administered 1ST Dose Pfizer COVID-19,mRNA, LNP-S, PF, 30mcg/0.3mL dose IM Intramuscular 06/06/2020 Administered 2ND Dose Tdap (Adacel) IM Intramuscular 10/24/2015 Administered Social History Tobacco Use: Social History Observation Description Date Details (start date - stop date) Never Smoker NA - NA Social History Drug/Alcohol: Social Info Question Answer Notes Alcohol Screen Did you have a drink containing alcohol in the past year? 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 Past year's travels: None alcohol use: no drug use: no Coffee/Tea/Soda: yes 1 regular coffe es per day, 1 decaf tea in the evening, no soda Marital Status experience no Living with Pets none smokers in household no Section Notes: never smoked never smoked never smoked never smoked never smoked never smoked never smoked never smoked never smoked never smoked never smoked never smoked never smoked never smoked never smoked never smoked never smoked never smoked never smoked never smoked never smoked never smoked never smoked never smoked never smoked never smoked never smoked never smoked never smoked never smoked never smoked never smoked never smoked never smoked Problems Problem Type SNOMED Code ICD Code Onset Dates Problem Status W/U Status Risk Notes Problem Essential hypertensi on (83882463) Essential hypertension (I10) Active confirmed Problem Slow transit constipation (95219502) Slow transit constipation (K59.01) Active confirmed Problem Dyspnea (002937015) Dyspnea (R06.00) Active con firmed Problem Gastroesophageal reflux disease (848072871) GERD without esophagitis (K21.9) Active confirmed Problem Osteoporosis (31915602) Osteoporosis (M81.0) Active confirmed Problem Otitis media (23388772) Otitis media (H66.90) Active confirmed Problem Uncomplicated mild persistent asthma (859128880) Mild persistent asthma without complication (J45.30) Active confirmed Problem Gastroesophageal reflux disease without esophagitis (577038293) Gastroesophageal reflux disease without esophagitis (K21.9) Active confirmed Problem Decreased blood leucocyte number (627408990) Other decreased white blood cell (WBC) count (D72.818) Active confirmed Problem Mild intermittent asthma (835432181) Mild intermittent asthma without complication (J45.20) Active confirmed Problem Left atrial enlargement (25785101165072) Left atrial enlargement (I51.7) Active confirmed Problem 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) Active confirmed Problem Chronic sinusitis (25243224) Sinus disease (J34.9) Active confirmed Problem Leukopenia (55137542) Leukopenia , unspecified type (D72.819) Active confirmed Problem Acute frontal sinusitis (36065290) Acute non-recurrent frontal sinusitis (J01.10) Active confirmed Problem Primary hypertension (56057719) Primary hypertension (I10) Active confirmed Problem Exacerbation of asth ma (870330227) Mild asthma exacerbation (J45.901) Active confirmed Problem Age-related osteoporosis (835205247) Osteoporosis without current pathological fracture, unspecified osteoporosis type (M81.0) Active confirmed Problem Pulmonary hypertensi on (89685268) Pulmonary HTN (I27.20) Active confirmed Vital Signs Blood pressure diastolic 80 mm Hg 03/18/2025 Height 63.5 in 03/18/2025 Blood pressure systolic 122 mm Hg 03/18/2025 Weight 147.2 lbs 03/18/2025 BMI 25.66 kg/m2 03/18/2025 Encounters Encounter Location Date Provider Diagnosis [address] [address] 03/18/2025 DOMINGA PEREZ Medicare annual well ness visit, subsequent Z00.[address] [address] 03/18/2025 DOMINGA PEREZ Essential hypertensi on I10 ; Mild persistent asthma without complication J45.30 ; Osteoporosis without current pathological fracture, unspecified osteoporosis type M81.0 ; Gastroesophageal reflux disease without esophagitis K21.9 ; Rash R21 ; Left atrial enlargement I51.7 ; Pulmonary HTN I27.20 and Leukopenia, unspecified type D72.[address] [address] 07/16/2024 DOMINGA PEREZ URI with cough and congestion J06.9 ; Essential hypertension I10 ; Bronchitis J40 ; Mild persistent asthma without complication J45.30 ; Osteoporosis without current pathological fracture, unspecified osteoporosis type M81.0 ; Gastroesophageal reflux disease without esophagitis K21.9 ; Rash R21 ; Left atrial enlargement I51.7 ; Pulmonary HTN I27.20 and Leukopenia, unspecified type D72.[address] [address] 06/01/2024 DOMINGA PEREZ Bronchitis J40 [address] [address] 06/06/2024 BONG MORRIS URI with cough and congestion J06.9 and Primary hypertension I10 [address] [address] 01/11/2025 DOMINGA PEREZ [address] [address] 01/10/2025 DOMINGA PEREZ [address] [address] 01/09/2025 DOMINGA PEREZ Chronic leukopenia D72.[address] [address] 06/06/2024 DOMINGA PEREZ [address] [address] 06/04/2024 DOMINGA PEREZ [facility] [address] [address] 06/01/2024 DOMINGA PEREZ [facility] [address] [address] 04/14/2024 DOMINGA PEREZ Acute non-recurrent frontal sinusitis J01.[address] [address] 01/01/2025 DOMINGA PEREZ Breast cancer screen ing by mammogram Z12.[address] [address] 06/07/2024 BONG MORRIS [address] [address] 06/07/2024 BONG MORRIS [facility] [address] [place] [address] 06/04/2024 DOMINGA PEREZ Assessments Encounter Date Diagnosis (ICD Code) Assessment Notes Treatment Notes Treatment Clinical Notes Section Notes 03/18/2025 Medicare annual wellness visit, subsequent (ICD-10 - Z00.00) Health Risk Assessment form reviewed with patient and scanned into chart 01/09/2025 Chronic leukopenia (ICD-10 - D72.819) 06/06/2024 Primary hypertension (ICD-10 - I10) BP above goal today. She takes her BP medication daily as prescribed. Recommend she do home BP checks over next 2 weeks and send readings via portal if >140/90 06/06/2024 URI with cough and congestion (ICD-10 - J06.9) She has completed medrol, will complete doxycycline, continue Advair twice daily as directed, albuterol prn. Lung exam & O2 are reassuring however since she felt better then worse again recommend chest xray. I did discuss that she possibly could have had influenza and this illness does typically result in at least 2 weeks of feeling unwell. Work note given for return 06/08/24 as long as she is better. 04/14/2024 Acute non-recurrent frontal sinusitis (ICD-10 - J01.10) 06/01/2024 Bronchitis (ICD-10 - J40) side effects, risks, and benefits of medication reviewed; rest/fluids; call in one week with update 07/16/2024 Essential hypertension (ICD-10 - I10) good control with BP < 140/90 07/16/2024 URI with cough and congestion (ICD-10 - J06.9) resolved 01/01/2025 Breast cancer screening by mammogram (ICD-10 - Z12.31) 03/18/2025 Essential hypertension (ICD-10 - I10) good control with BP < 130/80 07/16/2024 Bronchitis (ICD-10 - J40) resolved 07/16/2024 Mild persistent asthma without complication (ICD-10 - J45.30) stable; f/u with Dr Nation 07/16/2024 Osteoporosis without current pathological fracture, unspecified osteoporosis type (ICD-10 - M81.0) f/u at [facility] 03/18/2025 Mild persistent asthma without complication (ICD-10 - J45.30) stable; f/u with Dr Nation 07/16/2024 Gastroesophageal reflux disease without esophagitis (ICD-10 - K21.9) good control; declines w/u including ugi 03/18/2025 Osteoporosis without current pathological fracture, unspecified osteoporosis type (ICD-10 - M81.0) f/u at [facility] 07/16/2024 Rash (ICD-10 - R21) f/u with derm 03/18/2025 Gastroesophageal reflux disease without esophagitis (ICD-10 - K21.9) good control; declines w/u including ugi 03/18/2025 Rash (ICD-10 - R21) f/u with derm 07/16/2024 Left atrial enlargement (ICD-10 - I51.7) f/u with cardiology 07/16/2024 Pulmonary HTN (ICD-10 - I27.20) f/u with cardiology for echo 03/18/2025 Left atrial enlargement (ICD-10 - I51.7) f/u with cardiology 07/16/2024 Leukopenia, unspecified type (ICD-10 - D72.819) stable 03/18/2025 Pulmonary HTN (ICD-10 - I27.20) f/u with cardiology for echo 03/18/2025 Leukopenia, unspecified type (ICD-10 - D72.819) stable 07/16/2024 Other 11 min audio visit as per hpi 06/06/2024 Other I am seeing the patient under the supervision of the co-signing physician. The physician was available for consultation at the time of the office visit. 03/18/2025 Other BSE monthly; safe sex practice/sunscre en/seatbelt/helm et/condom use reviewed; see ophthy at least once q24 months/see dentist at least once q6 months; exercise 4-5x/wk and follow healthy diet; pt declines checking hiv, hep c Plan Of Treatment Pending Test Test Name Order Date LIPID PROFILE 12/31/2021 CBC W/ AUTOMATED DIFF 12/31/2021 COMP. METABOLIC 12/31/2021 Future Test Test Name Order Date mammogram, BILATERAL 08/31/2017 Colonoscopy [facility] 09/15/2017 THYROID PEROXIDASE AB(Thyroid Peroxidase ab(TPO) 10/26/2018 Polysomnogram 11/30/2018 LIPID PROFILE 12/21/2021 CBC W/ AUTOMATED DIFF 12/21/2021 COMP. METABOLIC 12/21/2021 Lyme DNA by PCR(5mL whole blood Lav top( EDTA)or Yellow top(ACD or Fluid) 03/22/2022 URINE CULTURE 03/22/2022 BLOOD CULTURE No. 1(BRL) 03/22/2022 BLOOD CULTURE No. 2(BRL) 03/22/2022 Urinalysis w/ [employer] 2021 Next Appt Details Provider Name:DOMINGA Waldo PEREZ, 0 09/17/2025 01:45:00 PM, [address] [place] [address], [phone], Provider Name:DOMINGA PEREZ, 1 05/25/2025 03:15:00 PM, [address] [place] [address], [phone], Insurance Providers Payer Name Payer Address Payer Phone Subscriber Number Group Number Insured Name Patient Relationship to Insured Coverage Start Date Coverage End Date MEDICARE [employer] [address] [place] [address] [id number] KIA Falcon LEIA Self - patient is the insured [address] [facility] [address] MEDICARE SUPPLEMENT PLAN [address] [place] [address] [id number] LEIA ROBERTS Self - patient is the insured 2 Medical (General) History Medical History History ICD Code FH celiac dz. / Prsnl h/o wheat allergy HTN Solitary Pulmonary Nodule (R odriguez)- no longer screening without change CT 2013 Bronchospasm Chronic rhinitis GERD- -avoids dairy and wheat- does not do oral medications Chronic Leukopenia Colonoscopy 2010: moderate tics- repeat 7 years ([facility]) DEXA 2014: Osteoporosis Metatarsalgia ([place]) Raynaud's Syndrome HCP: Jessica Hooks () osteoporosis Surgical History Surgery Date(Month/Year) right breast biopsy- Benign 2007? [facility] Hospitalization History Reason Date(Month/Year) [facility]- [facility]- for chest pain 2008
--- OUTSIDE RECORDS SUMMARY | 2025-04-02 10:44 | XMS_ITS | Patient Health Record ---
Author [facility] Address [address] [facility] [place] [address] Care Team Providers Care Certified Professional Coder Name Role Phone Linda Wesley MD Primary Care Provider Unavaila Brian Lauren Unavailable [phone] Allergies Allergen (clinical drug ingredient) Drug/Non Drug Allergy documented on EMR Reaction Allergy Type Onset Date Status Information temporarily unavailable Ceclor hives, rash Drug Allergy Active Information temporarily unavailable Ceftin hives, rash Drug Allergy Active Information temporarily unavailable Keflex hives, rash Drug Allergy Active Information temporarily unavailable sulfa hives, rash Drug Allergy Active Reason For Referral No Information Medications Medication SIG (Take, Route, Frequency, Duration) Notes Start Date End Date Status hydroCHLOROthiazide 25 MG 1 tablet Orall y Once a day; Duration: 30 day(s) Active ProAir HFA 108 (90 Base) MCG/ACT 2 puffs as needed Inhalation every 4 hrs Active Problems Problem Type SNOMED Code ICD Code Onset Dates Problem Status W/U Status Risk Notes Problem Disorder of joint of ankle and/or foot (180512986) Arthritis - Degenerative (719.97) Active confirmed Problem Neuralgia - Neuritis (729.2) Active confirmed Problem Hallux valgus (318783736) Hallux Valgus (735.0) Active confirmed Problem Congenital pes planus (88426528) Flat Foot, Congenital (754.61) Active confirmed Problem Pain in limb (27054799) Pain in Limb (729.5) Active confirmed Plan Of Treatment Pending Test Test Name Order Date X ray : Foot, left 2V 12/28/2011 X ray : Foot, right 2V 12/28/2011 Insurance Providers Payer Name Payer Address Payer Phone Subscriber Number Group Number Insured Name Patient Relationship to Insured Coverage Start Date Coverage End Date [facility] [address] [place] [address] [phone] [id number] LEIA ROBERTS Self - patient is the insured Medical (General) History Medical History History ICD Code measles hypertension chicken pox asthma Surgical History Surgery Date(Month/Year) breast biopsy 2006
--- OUTSIDE RECORDS SUMMARY | 2025-04-02 10:44 | XMS_ITS | Patient Health Record ---
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 Name Role Phone Arturo Snider Primary Care Provider Unavailabl e Allergies Allergen (clinical drug ingredient) Drug/Non Drug Allergy documented on EMR Reaction Allergy Type Onset Date Status sulfamethoxazole / trimethoprim Bactrim Unknown Drug Allergy Active Reason For Referral No Information Medications Medication SIG (Take, Route, Frequency, Duration) Notes Start Date End Date Status Raloxifene HCl 60 MG 1 tablet Orally Onc e a day Not-Taking Omeprazole daily Not-Takin g Advair HFA 115-21 MCG/ACT 2 puffs Inhalation Twice a day Not-Taking Evenity 105 MG/1.17ML 2.34 mL Subcutaneous once a month Active Lisinopril 5 MG 1 tablet Orally Once a day Active Claritin-D 24 Hour daily A ctive Calcium + D + K bid Acti ve Bioflex - as directed Orally A ctive Multivitamin - 1 tablet Orally Once a day Active Fluticasone-Salmetero l 55-14 MCG/ACT 1 puff Inhalation Twice a day Active Problems Problem Type SNOMED Code ICD Code Onset Dates Problem Status W/U Status Risk Notes Problem Acquired hallux valgus (91835333) Hallux valgus (acquired), right foot (M20.11) Active confirmed Problem Acquired hallux valgus (02800670) Hallux valgus (acquired), left foot (M20.12) Active confirmed Plan Of Treatment Pending Test Test Name Order Date X ray : Foot, left 3v 07/22/2020 X ray : Foot, right 3v 07/22/2020 Insurance Providers Payer Name Payer Address Payer Phone Subscriber Number Group Number Insured Name Patient Relationship to Insured Coverage Start Date Coverage End Date [employer] [place] [address] [place] [phone] [id number] [place] waldropMalia Self - patient is the insured [facility] [address] [place] [address] [id number] Malia Tay Self - patient is the insured Medical (General) History Medical History History ICD Code osteoporosis asthma Essential hypertension I10 sleep apnea on cpap History of 3 beats of SVT Mild pulmonary hypertension, PA systolic pressure of 39 on an echo by PVC in 2019, negative PE workup, followed by Dr.Miguel Nation at [facility] vaccinated X 3 Hospitalization History Reason Date(Month/Year) vaginal delivery (girl) 1982 vaginal delivery (boy) 1980 vaginal delivery (girl) 1977
== END 2025-04-02 10:25 | disposition home or self-care (01) ==
LOC: HO.HPS 09:54
PROVIDERS: PCP Internal Medicine; Visit Provider Hospitalist
DX: J45.40 Moderate persistent asthma, uncomplicated (principal); J30.9 Allergic rhinitis, unspecified; G47.33 Obstructive sleep apnea (adult) (pediatric); Z99.89 Dependence on other enabling machines and devices; R07.2 Precordial pain
CPT/HCPCS: 99214

== ENCOUNTER → 2025-04-02 09:53 | Outpatient (BNVA) | payer MEDICARE, BC, SELFPAY | PROVIDERS: PCP Internal Medicine; Visit Provider Hospitalist | DX: J30.9 Allergic rhinitis, unspecified (principal); G47.33 Obstructive sleep apnea (adult) (pediatric); Z99.89 Dependence on other enabling machines and devices; R07.2 Precordial pain | CPT/HCPCS: 99212 ==